=== PATIENT | female | born 1985 | race Caucasian/White ===

== ENCOUNTER 2017-04-14 22:26 | Observation (INO) | payer OTHER ==
[~2017-04-14] VITALS: Ht 160 cm; Wt 70.4 kg
[~2017-04-14 22:26] MED LIST: DSS100 PO; IBUP-2071 PO; PREN1TAB80 PO
[2017-04-14 22:46] VITALS: BP 117/56
[2017-04-15] MEDS ORDERED: PREN1TAB80 PO (01:07)
== END 2017-04-15 00:50 | disposition home or self-care (01) ==
LOC: 4S 22:26
PROVIDERS: ADMIT Obstetrics & Gynecology; ATTEND Obstetrics & Gynecology
DX: O62.9 Abnormality of forces of labor, unspecified (principal); Z3A.39 39 weeks gestation of pregnancy
CPT/HCPCS: 59025; G0378 ×2

== ENCOUNTER 2017-04-19 12:20 | Inpatient (IN) | payer OTHER ==
[~2017-04-19] VITALS: Ht 158 cm; Wt 70.8 kg
[2017-04-19] MEDS ORDERED: RINGERS SOLUTION,LACTATED 1,000 ML IV SCH ×2 (14:06→19:02)
[2017-04-19] MEDS ORDERED: RINGERS SOLUTION,LACTATED 1,000 ML IV PRN ×2 (14:06→19:02)
[2017-04-19] MEDS ORDERED: CITRIC ACID/SODIUM CITRATE 30 ML SOLUTION UDCUP PO PRN ×2 (14:15→19:15)
[2017-04-19] MEDS ORDERED: METOCLOPRAMIDE HCL 5 MG/ML 2 ML VIAL IVP PRN ×2 (14:15→19:15)
[2017-04-19 14:55] VITALS: BP 109/55
[2017-04-19] MEDS ORDERED: INFLUENZA VIRUS VACCINE QVS 2017-18 (3YR+)/PF 60 MCG/0.5 ML SYRINGE IM ONE (18:15)
[2017-04-19] MEDS ORDERED: FentaNYL CITRATE-PF 100 MCG/2 ML VIAL IVP PRN (19:15)
[2017-04-19 19:37] LABS: BASOPHILS % (AUTO) 0.5 % (0.0-2.0); EOSINOPHILS % (AUTO) 0.8 % (1.0-6.0); HEMATOCRIT 36.4 % (36-46); HEMOGLOBIN 12.2 g/dL (12.0-16.0); LYMPHOCYTES # (AUTO) 1.7 K/uL (1.0-4.8); LYMPHOCYTES % (AUTO) 18.7 % (22.0-44.0); MEAN CORPUSCULAR HEMOGLOBIN 29.8 pg (26.0-34.0); MEAN CORPUSCULAR HGB CONC 33.5 G/dL (31.0-37.0); MEAN CORPUSCULAR VOLUME 89 fL (80-100); MONOCYTES # (AUTO) 0.8 K/uL (0.1-1.0); MONOCYTES % (AUTO) 9.2 % (2.0-9.0); NEUTROPHILS # (AUTO) 6.5 K/uL (1.8-7.7); NEUTROPHILS % (AUTO) 70.8 % (40.0-70.0); PLATELET COUNT (AUTO)-OB 146 K/uL (150-450); RED BLOOD CELL COUNT(AUTO) 4.09 MIL/uL (4.00-5.20); RED CELL DISTRIBUTION WIDTH 13.9 % (11.5-14.5)
[2017-04-19] MEDS ORDERED: OXYGEN THERAPY IH SCH (20:00)
[2017-04-20] MEDS ORDERED: OXYTOCIN 30 UNITS/LACT RINGERS 500 ML IV PRN (00:50)
[2017-04-20] MEDS: OXYGEN THERAPY IH SCH ×2 (01:00→20:00)
[2017-04-20] MEDS ORDERED: LIDOCAINE HCL/PF 1% 30 ML VIAL INJ PRN (01:00)
[2017-04-20] MEDS ORDERED: ROPIVACAINE HCL 0.2% 100 ML ED ONE (07:24)
[2017-04-20] MEDS ORDERED: ACETAMINOPHEN/CODEINE 300-30 MG TABLET PO PRN ×2 (08:15)
[2017-04-20] MEDS ORDERED: BENZOCAINE 20%/MENTHOL 56 GM SPRAY CANISTER TP PRN (08:15)
[2017-04-20] MEDS ORDERED: GLYCERIN/WITCH HAZEL LEAF 40 PADS JAR TP PRN (08:15)
[2017-04-20] MEDS ORDERED: LANOLIN 7 GM OINTMENT TP PRN (08:15)
[2017-04-20] MEDS: MAGNESIUM HYDROXIDE SUSPENSION 30 ML UDCUP PO SCH ×2 (09:28→21:40)
[2017-04-20] MEDS: IBUPROFEN 800 MG TABLET PO SCH ×2 (09:29→21:40)
[2017-04-21] MEDS: IBUPROFEN 800 MG TABLET PO SCH ×2 (04:00→10:02)
[2017-04-21] MEDS: MAGNESIUM HYDROXIDE SUSPENSION 30 ML UDCUP PO SCH (09:00)
[2017-04-21] MEDS ORDERED: IBUP-2070 PO (10:27)
[2017-04-21] MEDS ORDERED: DSS100 PO (10:29)
== END 2017-04-21 11:40 | disposition home or self-care (01) | DRG 775 ==
LOC: 4S 12:20 → OBSVTOIN 12:20
PROVIDERS: ADMIT Obstetrics & Gynecology; ATTEND Obstetrics & Gynecology
PROC: 10D07Z6 Extraction of Products of Conception, Vacuum, Via Natural or Artificial Opening (ICD-10-PCS; principal; 2017-04-20)
PROC: 3E0R3BZ Introduction of Anesthetic Agent into Spinal Canal, Percutaneous Approach (ICD-10-PCS; 2017-04-20)
PROC: 00HU33Z Insertion of Infusion Device into Spinal Canal, Percutaneous Approach (ICD-10-PCS; 2017-04-20)
DX: O80 Encounter for full-term uncomplicated delivery (principal); Z28.21 Immunization not carried out because of patient refusal; Z37.0 Single live birth; Z3A.40 40 weeks gestation of pregnancy
CPT/HCPCS: J2590; J2795; J7120